=== PATIENT | female | born 1975 ===

== ENCOUNTER 2021-07-18 10:33 | Inpatient (IN) | payer BC, OTHER, SELFPAY ==
[2021-07-18] MEDS ORDERED: Electrolyte Replacement Protocol 1 EACH IVPB SCH (17:47)
[2021-07-18] MEDS ORDERED: Dextrose 5% in Water 1,000 ML IV PRN (17:50)
[2021-07-18] MEDS ORDERED: Dextrose 50% Abboject 50 ML SYRINGE SLOW IVP PRN (17:50)
[2021-07-18] MEDS ORDERED: Docusate 100 MG CAP PO PRN (18:03)
[2021-07-18] MEDS ORDERED: Polyethylene Glycol 3350 17 GM Packet PO PRN (18:03)
[2021-07-18] MEDS: Acetaminophen 325 MG TAB PO PRN (21:35)
[2021-07-18] MEDS: Enoxaparin Sodium 60 MG/0.6 ML SYRINGE SC SCH (21:36)
[2021-07-18] MEDS: HumaLOG 300 UNITS/3 ML VIAL SC PRN (21:37)
[2021-07-19 03:50] LABS: #Eosinphils 0.1 thou/uL (0.0-0.7); #Lymphocytes 0.6 thou/uL (1.20-3.40); #Monocytes 0.6 thou/uL (0.11-0.59); #Neutrophils 11.4 thou/uL (1.40-6.50); %Basophils 0.1 % (0.0-1.0); %Eosinophils 0.7 % (0.0-10.0); %Lymphocytes 4.8 % (21.0-51.0); %Monocytes 4.5 % (0.0-10.0); %Neutrophils 89.9 % (42.0-75.0); Hemoglobin 14.7 g/dL (12.0-16.0); Mean Corpuscular HGB CONC 35.4 g/dL (32.0-36.0); Mean Corpuscular Hemoglobin 31.4 pg (27.0-31.0); Mean Corpuscular Volume 88.6 fL (78.0-98.0); Mean Platelet Volume 9.7 fL (7.4-10.4); Platelet Count 201 thou/uL (130-400); RBC Distribution Width 12.9 % (11.5-14.5); Red Blood Cell (RBC) Count 4.67 mill/uL (4.20-5.40); White Blood Cell (WBC) Count 12.7 thou/uL (4.8-10.8)
[2021-07-19 04:17] LABS: ALT (SGPT) 93 U/L (8-55); AST (SGOT) 57 U/L (5-34); Albumin 3.7 g/dL (3.5-5.0); Alkaline Phosphatase 64 U/L (40-110); Anion Gap 16 mmol/L (10-20); BUN (Urea Nitrogen) 35 mg/dL (7.0-18.7); Bilirubin, Direct 0.5 mg/dL (0.1-0.3); Bilirubin, Total 1.1 mg/dL (0.2-1.2); CRP (Inflammatory) 1.23 mg/dL (= or < 0.5); Calc. Creatinine Clearance 229 mL/min (70-130); Calcium 8.9 mg/dL (7.8-10.44); Carbon Dioxide 30 mmol/L (22-29); Chloride 95 mmol/L (98-107); Glucose 236 mg/dL (70-105); Potassium 3.7 mmol/L (3.5-5.1); Protein, Total 6.7 g/dL (6.0-8.3); Sodium 137 mmol/L (136-145)
[2021-07-19] MEDS: HumaLOG 300 UNITS/3 ML VIAL SC PRN ×2 (05:42→22:41)
[2021-07-19] MEDS: Levothyroxine Sodium 88 MCG TAB PO SCH (05:42)
[2021-07-19] MEDS: Levothyroxine Sodium 100 MCG TAB PO SCH (05:42)
[2021-07-19] MEDS: Furosemide 40 MG/4 ML VIAL SLOW IVP SCH (09:28)
[2021-07-19] MEDS: Aspirin 81 mg Enteric Coated Tablet PO SCH (09:28)
[2021-07-19] MEDS: Enoxaparin Sodium 60 MG/0.6 ML SYRINGE SC SCH ×2 (09:28→21:12)
[2021-07-19] MEDS: Dexamethasone 4 mg/ml Vial SLOW IVP SCH ×2 (09:29→21:12)
[2021-07-19] MEDS ORDERED: Lantus 1000 UNITS/10 ML VIAL SC SCH (11:00)
[2021-07-20 04:57] LABS: #Eosinphils 0.1 thou/uL (0.0-0.7); #Lymphocytes 0.7 thou/uL (1.20-3.40); #Monocytes 0.6 thou/uL (0.11-0.59); #Neutrophils 9.2 thou/uL (1.40-6.50); %Basophils 0.1 % (0.0-1.0); %Eosinophils 0.5 % (0.0-10.0); %Lymphocytes 6.7 % (21.0-51.0); %Monocytes 5.2 % (0.0-10.0); %Neutrophils 87.4 % (42.0-75.0); Hemoglobin 14.5 g/dL (12.0-16.0); Mean Corpuscular HGB CONC 32.7 g/dL (32.0-36.0); Mean Corpuscular Volume 88.8 fL (78.0-98.0); Mean Platelet Volume 9.6 fL (7.4-10.4); Platelet Count 208 thou/uL (130-400); RBC Distribution Width 12.8 % (11.5-14.5); White Blood Cell (WBC) Count 10.5 thou/uL (4.8-10.8)
[2021-07-20] MEDS: Levothyroxine Sodium 100 MCG TAB PO SCH (05:10)
[2021-07-20] MEDS: Levothyroxine Sodium 88 MCG TAB PO SCH (05:10)
[2021-07-20 05:21] LABS: Anion Gap 12 mmol/L (10-20); BUN (Urea Nitrogen) 29 mg/dL (7.0-18.7); Calc. Creatinine Clearance 241 mL/min (70-130); Carbon Dioxide 31 mmol/L (22-29); Chloride 95 mmol/L (98-107); Glucose 237 mg/dL (70-105); Potassium 3.8 mmol/L (3.5-5.1); Sodium 134 mmol/L (136-145)
[2021-07-20] MEDS: HumaLOG 300 UNITS/3 ML VIAL SC PRN ×3 (06:27→17:41)
[2021-07-20] MEDS: Dexamethasone 4 mg/ml Vial SLOW IVP SCH ×2 (08:45→20:31)
[2021-07-20] MEDS: Furosemide 40 MG/4 ML VIAL SLOW IVP SCH (08:45)
[2021-07-20] MEDS: Aspirin 81 mg Enteric Coated Tablet PO SCH (08:46)
[2021-07-20] MEDS: Enoxaparin Sodium 60 MG/0.6 ML SYRINGE SC SCH ×2 (08:47→20:30)
[2021-07-20] MEDS ORDERED: Lantus 1000 UNITS/10 ML VIAL SC SCH (09:00)
[2021-07-20] MEDS: Lantus 1000 UNITS/10 ML VIAL SC SCH (10:04)
[2021-07-20] MEDS: Melatonin 3 MG TAB PO PRN (22:48)
[2021-07-21] MEDS: Levothyroxine Sodium 100 MCG TAB PO SCH (05:30)
[2021-07-21] MEDS: Levothyroxine Sodium 88 MCG TAB PO SCH (05:30)
[2021-07-21] MEDS: HumaLOG 300 UNITS/3 ML VIAL SC PRN ×4 (06:05→20:43)
[2021-07-21] MEDS: Dexamethasone 4 mg/ml Vial SLOW IVP SCH (08:11)
[2021-07-21] MEDS: Aspirin 81 mg Enteric Coated Tablet PO SCH (08:11)
[2021-07-21] MEDS: Enoxaparin Sodium 60 MG/0.6 ML SYRINGE SC SCH (08:11)
[2021-07-21] MEDS: Furosemide 40 MG/4 ML VIAL SLOW IVP SCH (08:12)
[2021-07-21] MEDS: Lantus 1000 UNITS/10 ML VIAL SC SCH (08:12)
[2021-07-21] MEDS: Enoxaparin Sodium 40 MG/0.4 ML SYRINGE SC SCH (11:56)
[2021-07-21] MEDS: Melatonin 3 MG TAB PO PRN (22:36)
[2021-07-21] MEDS: Zolpidem Tartrate 5 MG TAB PO PRN (23:55)
[2021-07-22] MEDS: Levothyroxine Sodium 100 MCG TAB PO SCH (05:19)
[2021-07-22] MEDS: Levothyroxine Sodium 88 MCG TAB PO SCH (05:19)
[2021-07-22] MEDS: HumaLOG 300 UNITS/3 ML VIAL SC PRN ×4 (05:44→21:10)
[2021-07-22] MEDS ORDERED: Dexamethasone 4 mg/ml Vial IVPB SCH (09:00)
[2021-07-22] MEDS ORDERED: Lantus 1000 UNITS/10 ML VIAL SC SCH (09:00)
[2021-07-22] MEDS: Aspirin 81 mg Enteric Coated Tablet PO SCH (09:07)
[2021-07-22] MEDS: Enoxaparin Sodium 40 MG/0.4 ML SYRINGE SC SCH (09:08)
[2021-07-23] MEDS: Zolpidem Tartrate 5 MG TAB PO PRN (00:11)
[2021-07-23] MEDS: Levothyroxine Sodium 100 MCG TAB PO SCH (06:02)
[2021-07-23] MEDS: Levothyroxine Sodium 88 MCG TAB PO SCH (06:02)
[2021-07-23 06:07] VITALS: BMI 64.5
[2021-07-23] MEDS ORDERED: Dexamethasone 4 mg/ml Vial IVPB SCH (09:00)
[2021-07-23] MEDS: Aspirin 81 mg Enteric Coated Tablet PO SCH (09:04)
[2021-07-23] MEDS: Lantus 1000 UNITS/10 ML VIAL SC SCH (09:05)
[2021-07-23] MEDS: Enoxaparin Sodium 40 MG/0.4 ML SYRINGE SC SCH (09:07)
[2021-07-23] MEDS: HumaLOG 300 UNITS/3 ML VIAL SC PRN ×3 (12:22→20:18)
[2021-07-24] MEDS: Levothyroxine Sodium 88 MCG TAB PO SCH (05:36)
[2021-07-24] MEDS: Levothyroxine Sodium 100 MCG TAB PO SCH (05:36)
[2021-07-24] MEDS: Enoxaparin Sodium 40 MG/0.4 ML SYRINGE SC SCH (09:07)
[2021-07-24] MEDS: Aspirin 81 mg Enteric Coated Tablet PO SCH (09:07)
[2021-07-24] MEDS: Dexamethasone 4 MG TAB PO SCH (09:07)
[2021-07-24] MEDS: Lantus 1000 UNITS/10 ML VIAL SC SCH (09:37)
[2021-07-24] MEDS: HumaLOG 300 UNITS/3 ML VIAL SC PRN (19:09)
[2021-07-25] MEDS: Levothyroxine Sodium 88 MCG TAB PO SCH (05:06)
[2021-07-25] MEDS: Levothyroxine Sodium 100 MCG TAB PO SCH (05:06)
[2021-07-25] MEDS: HumaLOG 300 UNITS/3 ML VIAL SC PRN ×4 (05:09→20:40)
[2021-07-25 06:03] LABS: #Eosinphils 0.3 thou/uL (0.0-0.7); #Lymphocytes 1.8 thou/uL (1.20-3.40); #Monocytes 0.8 thou/uL (0.11-0.59); #Neutrophils 7.8 thou/uL (1.40-6.50); %Basophils 0.3 % (0.0-1.0); %Eosinophils 3.1 % (0.0-10.0); %Monocytes 7.4 % (0.0-10.0); %Neutrophils 72.3 % (42.0-75.0); Hemoglobin 13.4 g/dL (12.0-16.0); Mean Corpuscular HGB CONC 31.5 g/dL (32.0-36.0); Mean Corpuscular Hemoglobin 28.8 pg (27.0-31.0); Mean Corpuscular Volume 91.6 fL (78.0-98.0); Mean Platelet Volume 9.9 fL (7.4-10.4); Platelet Count 181 thou/uL (130-400); RBC Distribution Width 13.3 % (11.5-14.5); Red Blood Cell (RBC) Count 4.65 mill/uL (4.20-5.40); White Blood Cell (WBC) Count 10.8 thou/uL (4.8-10.8)
[2021-07-25 06:27] LABS: Anion Gap 13 mmol/L (10-20); BUN (Urea Nitrogen) 19 mg/dL (7.0-18.7); Calc. Creatinine Clearance 255 mL/min (70-130); Calcium 8.8 mg/dL (7.8-10.44); Carbon Dioxide 30 mmol/L (22-29); Chloride 102 mmol/L (98-107); Glucose 177 mg/dL (70-105); Potassium 3.7 mmol/L (3.5-5.1); Sodium 141 mmol/L (136-145)
[2021-07-25] MEDS: Aspirin 81 mg Enteric Coated Tablet PO SCH (10:23)
[2021-07-25] MEDS: Dexamethasone 4 MG TAB PO SCH (10:24)
[2021-07-25] MEDS: Enoxaparin Sodium 40 MG/0.4 ML SYRINGE SC SCH (10:25)
[2021-07-25] MEDS: Lantus 1000 UNITS/10 ML VIAL SC SCH (10:26)
[2021-07-26] MEDS: Levothyroxine Sodium 100 MCG TAB PO SCH (05:23)
[2021-07-26] MEDS: Levothyroxine Sodium 88 MCG TAB PO SCH (05:23)
[2021-07-26] MEDS: Aspirin 81 mg Enteric Coated Tablet PO SCH (07:59)
[2021-07-26] MEDS: Dexamethasone 4 MG TAB PO SCH (07:59)
[2021-07-26] MEDS: Lantus 1000 UNITS/10 ML VIAL SC SCH (07:59)
[2021-07-26] MEDS: Enoxaparin Sodium 40 MG/0.4 ML SYRINGE SC SCH (07:59)
[2021-07-26] MEDS: Acetaminophen 325 MG TAB PO PRN (11:11)
[2021-07-26] MEDS: HumaLOG 300 UNITS/3 ML VIAL SC PRN (11:17)
[2021-07-26 12:31] VITALS: TEMP 98.4
[2021-07-26 12:55] VITALS: BP 112/70
== END 2021-07-26 16:32 | disposition home or self-care (01) | DRG 177 ==
LOC: IMCU/EMU 10:33 → 2SW 07-19 19:56
PROVIDERS: ADMIT Family Medicine; ATTEND Internal Medicine
PROC: 5A0955A Assistance with Respiratory Ventilation, Greater than 96 Consecutive Hours, High Flow/Velocity Cannula (ICD-10-PCS; principal; 2021-07-18)
PROC: 5A09357 Assistance with Respiratory Ventilation, Less than 24 Consecutive Hours, Continuous Positive Airway Pressure (ICD-10-PCS; 2021-07-18)
PROC: 8E0ZXY6 Isolation (ICD-10-PCS; 2021-07-18)
PROC: 3E0333Z Introduction of Anti-inflammatory into Peripheral Vein, Percutaneous Approach (ICD-10-PCS; 2021-07-19)
DX: U07.1 COVID-19 (principal); J12.82 Pneumonia due to coronavirus disease 2019; J96.01 Acute respiratory failure with hypoxia; Z68.44 Body mass index [BMI] 60.0-69.9, adult; E66.01 Morbid (severe) obesity due to excess calories; G47.33 Obstructive sleep apnea (adult) (pediatric); G47.00 Insomnia, unspecified; G90.2 Horner's syndrome; K59.00 Constipation, unspecified; E11.65 Type 2 diabetes mellitus with hyperglycemia; F41.9 Anxiety disorder, unspecified; E89.0 Postprocedural hypothyroidism; Z99.89 Dependence on other enabling machines and devices; Z86.73 Personal history of transient ischemic attack (TIA), and cerebral infarction without residual deficits; Z86.018 Personal history of other benign neoplasm; Z79.890 Hormone replacement therapy; Z98.890 Other specified postprocedural states; Z83.3 Family history of diabetes mellitus; Z82.49 Family history of ischemic heart disease and other diseases of the circulatory system; Z85.850 Personal history of malignant neoplasm of thyroid; Z79.899 Other long term (current) drug therapy
CPT/HCPCS: 36415; 36416; 71045; 80048; 80076; 82728; 83880; 85025; 85379; 86140; 94660; J1100; J1650; J1815; J1940; J8540